=== PATIENT | female | born 1955 | race Asian ===

== ENCOUNTER 2017-06-02 06:47 | Outpatient (CLI) | payer OTHER ==
[2017-06-02] VITALS (21 sets, daily range): BP systolic 111–151; BP diastolic 48–82; PULSE 52–68
[~2017-06-02] VITALS: Ht 152.4 cm; Wt 46.5 kg
[~2017-06-02 06:47] MED LIST: ASPIRIN 81M81 MG/TA2 PO; CALCIUM 600/VIT1 CAP PO; CRESTOR 10MG10 MG PO; FOLIC ACID 11 MG/TA1 PO; GLUCOPHAGE850 MG/TAB PO; HYZAAR 50-12.1 UDTAB PO; OMEGA-3 1000 MG1 CAP PO; TENORMIN 5050 MG/TAB PO
== END 2017-06-02 12:29 | disposition home or self-care (01) ==
LOC: COL.RAD 06:47
DX: R91.8 Other nonspecific abnormal finding of lung field (principal); Z82.5 Family history of asthma and other chronic lower respiratory diseases; F17.210 Nicotine dependence, cigarettes, uncomplicated

== ENCOUNTER → 2020-10-31 | Day surgery (SDC) | payer MEDICARE, OTHER ==
[~2020-10-31] MED LIST changes: +HCTZ12.5TAB PO
--- NOTE | 2020-10-31 07:30 | NUR ---
Pt arrives to unit with daughter, pt reports she did not do a bowel prep, that she never received any instructions. Dr. Zuñiga notified and procedure cancelled and she will have her office reschedule with the pt. Daughter notified and pt leaves the unit.
== END ==
LOC: SDCO 07:16
DX: Z12.11 Encounter for screening for malignant neoplasm of colon (principal); Z53.8 Procedure and treatment not carried out for other reasons; E78.5 Hyperlipidemia, unspecified; E11.22 Type 2 diabetes mellitus with diabetic chronic kidney disease; I12.9 Hypertensive chronic kidney disease with stage 1 through stage 4 chronic kidney disease, or unspecified chronic kidney disease; N18.9 Chronic kidney disease, unspecified; M81.0 Age-related osteoporosis without current pathological fracture; Z87.891 Personal history of nicotine dependence; Z20.822 Contact with and (suspected) exposure to COVID-19; Z85.118 Personal history of other malignant neoplasm of bronchus and lung; Z79.82 Long term (current) use of aspirin; Z79.899 Other long term (current) drug therapy

== ENCOUNTER → 2020-11-14 | Outpatient (CLI) | payer MEDICARE, OTHER | LOC: MC.RAD 08:00 | DX: Z12.31 Encounter for screening mammogram for malignant neoplasm of breast (principal) ==

== ENCOUNTER 2021-01-09 09:16 | Day surgery (SDC) | payer MEDICARE, OTHER ==
[~2021-01-09] VITALS: Ht 152.4 cm; Wt 46.3 kg
[~2021-01-09 09:16] MED LIST changes: -HCTZ12.5TAB PO
[2021-01-09] MEDS ORDERED: HCTZ12.5TAB PO (09:33)
--- NOTE | 2021-01-09 09:51 | NUR ---
PATIENT'S BLOOD SUGAR CHECKED AND WAS 62. DAVID COIL REWIND MACHINE OPERATOR NOTIFIED AND ORDERS RECIEVED
[2021-01-09 10:09] VITALS: BP 138/76; PULSE 81; TEMP 97.3
[2021-01-09 12:00] VITALS: BP 146/95; PULSE 68
[2021-01-09 12:15] VITALS: BP 140/77; PULSE 71
[2021-01-09 12:32] VITALS: BP 126/80; PULSE 70; TEMP 97
--- NOTE | 2021-01-09 12:38 | NUR ---
1135- Provider spoke with patient's daughter over the phone. 1145- Pt returns from endo procedure via cart and RN assist to [facility]. Pt ambulates from cart to recliner with RN assist. Monitors on and alarms set. Call light within reach. Report received from DANIKA Mendez. Pt alert and oriented. Pt requests coffee and muffin. Pt denies any pain or nausea. Blood glucose 78. 1200- Pt taking food and drink well. No complications noted. 1220- Discharge instructions given to pt. All questions answered to pt and daughter's satisfaction. Handed to pt education material and discharge information. 1238- Pt transferred out of the hospital via wheelchair, to private vehicle driven by daughter.
== END 2021-01-09 12:38 | disposition home or self-care (01) ==
LOC: SDCO 09:16
DX: Z12.11 Encounter for screening for malignant neoplasm of colon (principal); D12.3 Benign neoplasm of transverse colon; E78.5 Hyperlipidemia, unspecified; N18.9 Chronic kidney disease, unspecified; I12.9 Hypertensive chronic kidney disease with stage 1 through stage 4 chronic kidney disease, or unspecified chronic kidney disease; E11.22 Type 2 diabetes mellitus with diabetic chronic kidney disease; Z79.890 Hormone replacement therapy; Z79.899 Other long term (current) drug therapy; Z87.891 Personal history of nicotine dependence; Z85.118 Personal history of other malignant neoplasm of bronchus and lung; Z98.51 Tubal ligation status; Z79.84 Long term (current) use of oral hypoglycemic drugs
CPT/HCPCS: J7120